=== PATIENT | female | born 1970 | race Caucasian/White ===

== ENCOUNTER 2022-11-09 10:59 | Emergency (ER) | payer BC, MEDICAID ==
[~2022-11-09] VITALS: Ht 157.5 cm; Wt 56.8 kg
[~2022-11-09 10:59] MED LIST: B.AN1CAP PO; IBUP-24 PO
[2022-11-09 11:10] VITALS: BP 146/71
== END 2022-11-09 12:46 | disposition home or self-care (01) ==
LOC: ER 11:00
DX: L25.9 Unspecified contact dermatitis, unspecified cause (principal); F31.9 Bipolar disorder, unspecified; F12.90 Cannabis use, unspecified, uncomplicated; Z88.5 Allergy status to narcotic agent
CPT/HCPCS: 99282